=== PATIENT | female | born 1970 | race Caucasian/White ===

== ENCOUNTER 2018-07-13 09:01 | Outpatient (CLI) | payer OTHER ==
[~2018-07-13 09:01] MED LIST: CATAFLAM50 MG PO; ZITHROMAX500 MG PO
== END 2018-07-13 09:20 | disposition home or self-care (01) ==
LOC: LAB 09:01
DX: Z01.812 Encounter for preprocedural laboratory examination (principal)

== ENCOUNTER 2018-08-17 05:42 | Day surgery (SDC) | payer OTHER ==
[~2018-08-17 05:42] MED LIST changes: +LOSARTAN-HCTZ1 EACH PO
== END 2018-08-17 11:20 | disposition home or self-care (01) ==
LOC: CIR.AMB 05:42
DX: M65.841 Other synovitis and tenosynovitis, right hand (principal)